=== PATIENT | female | born 1955 | race Caucasian/White ===

== ENCOUNTER → 2018-04-06 09:20 | Outpatient (CLI) | payer OTHER, MEDICAID, SELFPAY ==
[2018-04-06 09:51] LABS: Influenza A and B by PCR Rapid Negative (Negative)
== END ==
PROVIDERS: Visit Provider Physician Assistant
DX: R68.89 Other general symptoms and signs (principal); J02.9 Acute pharyngitis, unspecified
CPT/HCPCS: 87070; 87400

== ENCOUNTER 2019-12-17 12:58 | Emergency (ER) | payer OTHER, MEDICAID, SELFPAY ==
[2019-12-17 13:05] VITALS: BP 182/79; PULSE 102; RESP 20; TEMP 36.6; O2SAT 97
--- NOTE | 2019-12-17 13:11 | DI.RAD.S_ITS ---
PROCEDURE: XR CHEST 1V INDICATIONS: chest pain TECHNIQUE: One view of the chest was acquired. COMPARISON: [facility], , CHEST 2 VIEW, 04/08/2017, 12:44. FINDINGS: Surgical changes and devices: None. Lungs and pleura: Lungs are clear. No pleural effusions or pneumothorax. Mediastinum: Mediastinal contours appear normal. Heart size is normal. Bones and chest wall: No suspicious bony lesions. Overlying soft tissues appear unremarkable. IMPRESSION: No acute cardiopulmonary abnormality. Dictated by: Alfredo Vogt M.D. on 12/17/2019 at 12:56 Approved by: Alfredo Vogt M.D. on 12/17/2019 at 12:56
[2019-12-17 13:32] LABS: Add Manual Diff / Slide Review NO; Basophils Absolute Auto 100 /uL (0-100); Basophils Percent Auto 1.2 % (0-2); Eosinophils Absolute Auto 100 /uL (0-450); Eosinophils Percent Auto 0.9 % (2-4); Hematocrit 40.9 % (36-46); Hemoglobin 13.5 g/dL (12.0-16.0); Lymphocytes Absolute Auto 2000 /uL (1100-4500); Lymphocytes Percent Auto 24.8 % (25-40); Mean Corpuscular Hemoglobin 29.4 PG (26-34); Mean Corpuscular Volume 89.1 fL (80-100); Monocytes Absolute Auto 500 /uL (0-900); Monocytes Percent Auto 6.8 % (3-14); Neutrophils Absolute Auto 5200 /uL (1500-7000); Neutrophils Percent Auto 66.3 % (50-75); Platelet Count 333 X10^3/uL (150-400); Red Blood Cell Count 4.59 X10^6/uL (4.0-5.2); Red Cell Distribution Width 12.3 % (11.6-14.8); White Blood Cell Count 7.9 X10^3/uL (4.5-11.0)
[2019-12-17 13:44] LABS: Prothrombin Time 11.8 SECONDS (10.1-12.7)
[2019-12-17 13:47] LABS: PTT Partial Thromboplastin Tim 34 SECONDS (26.4-36.2)
[2019-12-17 13:48] LABS: Alanine Aminotransferase 13 IU/L (<35); Albumin 4.3 g/dL (3.5-5.0); Albumin Globulin Ratio 1.3 (1.0-2.8); Alkaline Phosphatase 115 U/L (38-126); Aspartate Aminotransferase 19 IU/L (14-36); BUN Creatinine Ratio 25.9 (6-22); Bilirubin Total 0.5 mg/dL (0.2-1.3); Blood Urea Nitrogen 15 mg/dL (7-17); Calcium 9.2 mg/dL (8.4-10.2); Carbon Dioxide 30 mmol/L (22-32); Chloride 108 mmol/L (98-107); Creatine Kinase 42 U/L (30-135); Estimated Glomerular Filt Rate > 60.0 mL/min (>60); Globulin 3.3 g/dL (1.7-4.1); Glucose 101 mg/dL (80-110); HEMOLYSIS < 15 (0-50); Lipase 107 U/L (23-300); Potassium 3.5 mmol/L (3.4-5.1); Sodium 142 mmol/L (137-145); Total Protein 7.6 g/dL (6.3-8.2)
[2019-12-17 14:00] LABS: Troponin I < 0.012 ng/mL (0.01-0.034)
[2019-12-17] MEDS: ONDANSETRON 4 MG/2 ML INJ IV (14:37)
[2019-12-17] MEDS: KETOROLAC 60 MG/2 ML VIAL 30 MG IV (14:37)
--- NOTE | 2019-12-17 14:52 | ED.HA ---
HPI - Headache <THUAN Duong - Last Filed: 12/17/19 20:04> General Chief Complaint: Headache Stated Complaint: Chipped Tooth, Headache, Throwing Up Time Seen by Provider: 12/17/19 13:51 Mode of arrival: Ambulatory History of Present Illness HPI Narrative: 64-year-old female presents emergency department for left lower tooth pain. Patient states she chipped her tooth about a week ago, however she ate a taco this morning and noticed increasing pain and swelling. Patient states this triggered headache. She has a history of headaches, she states she gets them every once in a while in usually vomits with her headaches. Patient did have a few episodes of vomiting today. Patient also notes intermittent sharp stabbing chest pain for the past week. Patient states the pain lasts a few seconds to few minutes. She states it is worse when she presses on her chest bone. She denies any alleviating symptoms. Patient denies any other symptoms such as shortness of breath, fevers, chills, dizziness, abdominal pain, or any other concerns. Related Data Previous Rx's Medication Instructions Recorded azithromycin 250 mg tablet See Rx Instructions PO .COMPLEX #6 04/06/18 tab magic mouthwash 15 ml PO QID PRN #240 ml 04/06/18 ondansetron 4 mg disintegrating 4 mg PO Q6-8H PRN #30 tab 04/06/18 tablet clindamycin HCl 450 mg PO TID 7 Days #63 cap 12/17/19 ondansetron 4 mg PO Q6H PRN #10 tab 12/17/19 Allergies Allergy/AdvReac Type Severity Reaction Status Date / Time Penicillins [PENICILLINS] Allergy Mild RASH Verified 04/06/18 08:53 Review of Systems <THUAN Duong - Last Filed: 12/17/19 20:04> Review of Systems Narrative: REVIEW OF SYSTEMS: GENERAL: Denies fever or chills. HENT: No head trauma. Reports tooth pain, complains of headache, see HPI. EYES: No loss of vision. CARDIOVASCULAR: Reports intermittent chest pain, see HPI. RESPIRATORY: No shortness of breath or cough. GASTROINTESTINAL: No nausea, vomiting, diarrhea, or constipation. GENITOURINARY: No flank pain. MUSCULOSKELETAL: No weakness, or deformities. INTEGUMENTARY: No rash, lesions, or pruritus. NEURO: No numbness, tingling, memory loss, or confusion. PSYCH: No behavior or mood changes. Patient History <THUAN Duong - Last Filed: 12/17/19 20:04> Medical History Migraine headache (Inactive) Social History Smoking Status: Never smoker Smoking Status: Never smoker Exam <THUAN Duong - Last Filed: 12/17/19 20:04> Initial Vital Signs Initial Vital Signs: Vital Signs Temperature 97.9 F 12/17/19 13:05 Pulse Rate 102 H 12/17/19 13:05 Respiratory Rate 20 12/17/19 13:05 Blood Pressure 182/79 H 12/17/19 13:05 Pulse Oximetry 97 12/17/19 13:05 PHYSICAL EXAMINATION: GENERAL: Well groomed, alert, and cooperative. Answers questions promptly and appropriately. Vital signs noted. HENT: Normocephalic, atraumatic. Ear canals patent. Oral mucosa is pink and moist. Chipped tooth noted at #17, surrounding gingivitis. EYES: PERRLA, EOMIs, conjunctiva pink, sclera white, no periorbital swelling. CHEST: Tenderness to palpation of right sternal-costal margin CARDIOVASCULAR: S1 and S2 sounds normal. Regular rate and rhythm, no murmurs, clicks, or bruits. No pedal edema. RESPIRATORY: Normal respiratory rate, trachea midline, airway patent. No stridor, nasal flaring or accessory muscle use. Lungs are clear in all soto without wheeze, rhonchi, or crackles. GASTROINTESTINAL: Bowel sounds normoactive. Abdomen is soft and non-tender. No organomegaly. MUSCULOSKELETAL: Normal gait and coordination. Equal tone and mass bilaterally. EXTREMITIES: CMS intact. Moves all extremities. SKIN: Warm, dry, soft, appropriate color for ethnicity. No lesions, rashes, or wounds. NEURO: Alert and Oriented X 3. Good coordination. No ataxia, or sensory deficits, or cognitive issues. PSYCH: Appropriate affect and mood. <Padmaja Diaz DO - Last Filed: 12/18/19 08:27> Initial Vital Signs Initial Vital Signs: Vital Signs Temperature 97.9 F 12/17/19 13:05 Pulse Rate 102 H 12/17/19 13:05 Respiratory Rate 20 12/17/19 13:05 Blood Pressure 182/79 H 12/17/19 13:05 Pulse Oximetry 97 12/17/19 13:05 Scores <Renee THUAN Gonzalez - Last Filed: 12/17/19 20:04> HEART Score Heart Score history: Slightly Suspicious Heart Score EKG: Normal Heart Score Age: 45-64 years old Heart Score risk factors: No known risk factors Heart Score troponin: < or = to normal limit Heart Score Total: 1 Course <Renee THUAN Gonzalez - Last Filed: 12/17/19 20:04> Course Course Narrative: Patient reported resolved chest pain after administration of Toradol, improved headache after administration of Toradol and Zofran. Orders Ordered: Discontinued Medications Ketorolac Tromethamine (Toradol) 30 mg IV NOW ONE Stop: 12/17/19 14:31 Last Admin: 12/17/19 14:37 Dose: 30 mg Documented by: BOBBY Ondansetron HCl (Zofran) 4 mg IV NOW ONE Stop: 12/17/19 14:31 Last Admin: 12/17/19 14:37 Dose: 4 mg Documented by: BOBBY Consultations Consultation #1: Patient staffed with Dr. Diaz discussed test, test results, and plan of care. Vital Signs Vital signs: Vital Signs - 8 hr 12/17/19 13:05 12/17/19 15:36 Temperature 97.9 F Pulse Rate 102 H 74 Respiratory Rate 20 16 Blood Pressure 182/79 H 155/72 H Pulse Oximetry 97 96 <Padmaja Diaz DO - Last Filed: 12/18/19 08:27> Orders Ordered: Discontinued Medications Ketorolac Tromethamine (Toradol) 30 mg IV NOW ONE Stop: 12/17/19 14:31 Last Admin: 12/17/19 14:37 Dose: 30 mg Documented by: BOBBY Ondansetron HCl (Zofran) 4 mg IV NOW ONE Stop: 12/17/19 14:31 Last Admin: 12/17/19 14:37 Dose: 4 mg Documented by: BOBBY Vital Signs Vital signs: Vital Signs - 8 hr 12/17/19 13:05 12/17/19 15:36 Temperature 97.9 F Pulse Rate 102 H 74 Respiratory Rate 20 16 Blood Pressure 182/79 H 155/72 H Pulse Oximetry 97 96 MDM - Headache <Renee GonzalezTHUAN - Last Filed: 12/17/19 20:04> Medical Records Attestation: I reviewed the patient's medical records. Lab Data Attestation: I reviewed the patient's lab results. Result diagrams: 12/17/19 13:22 12/17/19 13:22 Labs: Lab Results 12/17/19 12/17/19 12/17/19 Range/Units 13:22 13:22 13:22 WBC 7.9 (4.5-11.0) X10^3/uL RBC 4.59 (4.0-5.2) X10^6/uL Hgb 13.5 (12.0-16.0) g/dL Hct 40.9 (36-46) % MCV 89.1 (80-100) fL MCH 29.4 (26-34) PG MCHC 33.0 (30-36) % RDW 12.3 (11.6-14.8) % Plt Count 333 (150-400) X10^3/uL Neut % (Auto) 66.3 (50-75) % Lymph % (Auto) 24.8 L (25-40) % [place] % (Auto) 6.8 (3-14) % Eos % (Auto) 0.9 L (2-4) % Baso % (Auto) 1.2 (0-2) % Neut # (Auto) 5200 (5724-1965) /uL Lymph # (Auto) 2000 (4073-4187) /uL [place] # (Auto) 500 (0-900) /uL Eos # (Auto) 100 (0-450) /uL Baso # (Auto) 100 (0-100) /uL PT 11.8 (10.1-12.7) SECONDS INR 1.0 (0.9-1.3) APTT 34 (26.4-36.2) SECONDS Sodium 142 (137-145) mmol/L Potassium 3.5 (3.4-5.1) mmol/L Chloride 108 H (98-107) mmol/L Carbon Dioxide 30 (22-32) mmol/L BUN 15 (7-17) mg/dL Creatinine 0.58 (0.52-1.04) mg/dL Estimated GFR > 60.0 (>60) mL/min BUN/Creatinine Ratio 25.9 H (6-22) Glucose 101 (80-110) mg/dL Calcium 9.2 (8.4-10.2) mg/dL Total Bilirubin 0.5 (0.2-1.3) mg/dL AST 19 (14-36) IU/L ALT 13 (<35) IU/L Alkaline Phosphatase 115 (38-126) U/L Total Creatine Kinase 42 (30-135) U/L CK-MB (CK-2) TNP CK-MB (CK-2) Rel Index TNP Troponin I < 0.012 (0.01-0.034) ng/mL Total Protein 7.6 (6.3-8.2) g/dL Albumin 4.3 (3.5-5.0) g/dL Globulin 3.3 (1.7-4.1) g/dL Albumin/Globulin Ratio 1.3 (1.0-2.8) Lipase 107 (23-300) U/L Imaging Data Chest x-ray: Radiologist's Impression: [place] [address] XRay Report Signed Patient: Daniel Lima R#: [id number] : 7Acct:[id number] Age/Sex: 64 / FDate of Service: 12/17/19 Loc: ED Accession Number: [id number] Procedure: XR chest 1V Ordering Provider: Padmaja Diaz D.O. PROCEDURE: XR CHEST 1V INDICATIONS: chest pain TECHNIQUE: One view of the chest was acquired. COMPARISON: [facility], , CHEST 2 VIEW, 04/08/2017, 12:44. FINDINGS: Surgical changes and devices: None. Lungs and pleura: Lungs are clear. No pleural effusions or pneumothorax. Mediastinum: Mediastinal contours appear normal. Heart size is normal. Bones and chest wall: No suspicious bony lesions. Overlying soft tissues appear unremarkable. IMPRESSION: No acute cardiopulmonary abnormality. Dictated by: Alfredo Vogt M.D. on 12/17/2019 at 12:56 Approved by: Alfredo Vogt M.D. on 12/17/2019 at 12:56 ECG Data Interpretation: 1312: Sinus rhythm, rate 95, IL interval 156, QTC 69. No ST elevation or depression. T-wave inversion noted in V1 and V2, this is consistent with prior EKGs from 2018 and 2015. EKG also viewed by Dr. Diaz per protocol. MDM Narrative Medical decision making narrative: 64-year-old female presents emergency department for a chipped tooth increasing pain, a headache consistent with her past headache, and intermittent chest pain for the past week. Suspect patient most likely has a tooth abscess surrounding her crack tooth given gingivitis, patient was prescribed clindamycin given allergy to penicillins. Additionally, I suspect this to pain triggered a headache. Patient reports headaches are consistent with previous headache, she does have vomiting occasionally with headaches. Headache improved after administration of Toradol and Zofran. This pain less likely cardiac given reproducible pain and costal-sternal border, heart score of 2, EKGs consistent with previous EKGs, negative troponin, and electrolytes within normal limits. Patient was encouraged to follow up with her primary care provider especially if symptoms continue patient further testing. Return precautions given for new worsening symptoms she agrees to plan of care verbalized understanding. <Padmaja Diaz, DO - Last Filed: 12/18/19 08:27> Lab Data Labs: Lab Results 12/17/19 12/17/19 12/17/19 Range/Units 13:22 13:22 13:22 WBC 7.9 (4.5-11.0) X10^3/uL RBC 4.59 (4.0-5.2) X10^6/uL Hgb 13.5 (12.0-16.0) g/dL Hct 40.9 (36-46) % MCV 89.1 (80-100) fL MCH 29.4 (26-34) PG MCHC 33.0 (30-36) % RDW 12.3 (11.6-14.8) % Plt Count 333 (150-400) X10^3/uL Neut % (Auto) 66.3 (50-75) % Lymph % (Auto) 24.8 L (25-40) % [place] % (Auto) 6.8 (3-14) % Eos % (Auto) 0.9 L (2-4) % Baso % (Auto) 1.2 (0-2) % Neut # (Auto) 5200 (7485-2049) /uL Lymph # (Auto) 2000 (2716-8581) /uL [place] # (Auto) 500 (0-900) /uL Eos # (Auto) 100 (0-450) /uL Baso # (Auto) 100 (0-100) /uL PT 11.8 (10.1-12.7) SECONDS INR 1.0 (0.9-1.3) APTT 34 (26.4-36.2) SECONDS Sodium 142 (137-145) mmol/L Potassium 3.5 (3.4-5.1) mmol/L Chloride 108 H (98-107) mmol/L Carbon Dioxide 30 (22-32) mmol/L BUN 15 (7-17) mg/dL Creatinine 0.58 (0.52-1.04) mg/dL Estimated GFR > 60.0 (>60) mL/min BUN/Creatinine Ratio 25.9 H (6-22) Glucose 101 (80-110) mg/dL Calcium 9.2 (8.4-10.2) mg/dL Total Bilirubin 0.5 (0.2-1.3) mg/dL AST 19 (14-36) IU/L ALT 13 (<35) IU/L Alkaline Phosphatase 115 (38-126) U/L Total Creatine Kinase 42 (30-135) U/L CK-MB (CK-2) TNP CK-MB (CK-2) Rel Index TNP Troponin I < 0.012 (0.01-0.034) ng/mL Total Protein 7.6 (6.3-8.2) g/dL Albumin 4.3 (3.5-5.0) g/dL Globulin 3.3 (1.7-4.1) g/dL Albumin/Globulin Ratio 1.3 (1.0-2.8) Lipase 107 (23-300) U/L Discharge Plan Departure Patient Disposition: Home Clinical Impression: Migraine headache, Infected tooth, Acute costochondritis Discharge Date/Time: 12/17/19 15:38 Instructions: DI for Tooth Abscess, DI for Costochondritis, DI for Headache Activity Restrictions/Additional Instructions: Thank you for entrusting me with your care today. As discussed, I have given you antibiotics to help with your tooth abscess. Also given you anti nausea medication. Your prescriptions were sent to [facility]. I suggest taking ibuprofen 400-600 mg every 6 hours to help with costochondritis in tooth pain. Your laboratory work, chest x-ray, an EKG are non-remarkable. Please follow-up with your dentist as well as your primary care provider in the next 1-2 weeks for further evaluation especially if her symptoms continue. Return emergency department for any new or worsening symptoms. Prescriptions: New ondansetron 4 mg tablet,disintegrating 4 mg PO Q6H PRN (Reason: nausea and vomiting) Qty: 10 RF: 0 clindamycin HCl 150 mg capsule 450 mg PO TID 7 Days Qty: 63 RF: 0 No Action ondansetron 4 mg tablet,disintegrating 4 mg PO Q6-8H PRN (Reason: nausea and vomiting) Qty: 30 RF: 0 magic mouthwash 15 ml PO QID PRN (Reason: pain) Qty: 240 RF: 1 azithromycin 250 mg tablet See Rx Instructions PO .COMPLEX Qty: 6 RF: 0 <Padmaja Diaz DO - Last Filed: 12/18/19 08:27> [facility] ED Attending Asmitaature Attestation: I was immediately available in the department for consultation. Documentation has been reviewed. I agree with assessment and plan.
[2019-12-17 15:36] VITALS: BP 155/72; PULSE 74; RESP 16; O2SAT 96
== END 2019-12-17 15:38 | disposition home or self-care (01) ==
PROVIDERS: Emergency Medicine; Emergency Provider Nurse Practitioner
DX: G43.909 Migraine, unspecified, not intractable, without status migrainosus (principal); K04.7 Periapical abscess without sinus; M94.0 Chondrocostal junction syndrome [Tietze]; R11.10 Vomiting, unspecified; R07.9 Chest pain, unspecified
CPT/HCPCS: 36415; 71045; 80053; 82550; 83690; 84484; 85025; 85610; 85730; 93005; 96374; 96375; 99284; J1885; J2405

== ENCOUNTER 2021-01-14 12:09 | Emergency (ER) | payer OTHER, MEDICAID, SELFPAY ==
[2021-01-14] VITALS (30 sets, daily range): BP systolic 159–229; BP diastolic 73–156; PULSE 47–102; RESP 13–57; TEMP 36.6; O2SAT 95–100; BMI 25.7
--- NOTE | 2021-01-14 12:17 | DI.RAD.S_ITS ---
PROCEDURE: XR CHEST 1V INDICATIONS: Chest pain TECHNIQUE: One view of the chest was acquired. COMPARISON: Located [facility], CR, XR CHEST 1V, 12/17/2019, 13:25. FINDINGS: Surgical changes and devices: None. Lungs and pleura: Mildly coarsened interstitial markings. No consolidation, pleural effusions or pneumothorax. Mediastinum: Mediastinal contours appear normal. Heart size is normal. Bones and chest wall: No suspicious bony lesions. Overlying soft tissues appear unremarkable. IMPRESSION: No acute cardiopulmonary abnormality. Dictated by: Jose Abdalla M.D. on 01/14/2021 at 12:33 Approved by: Jose Abdalla M.D. on 01/14/2021 at 12:34
[2021-01-14 12:24] LABS: Add Manual Diff / Slide Review NO; Basophils Absolute Auto 100 /uL (0-100); Eosinophils Absolute Auto 200 /uL (0-450); Eosinophils Percent Auto 2.4 % (2-4); Hematocrit 41.8 % (36-46); Hemoglobin 14.2 g/dL (12.0-16.0); Lymphocytes Absolute Auto 2900 /uL (1100-4500); Lymphocytes Percent Auto 30.5 % (25-40); Mean Corpuscular Hemoglobin 30.1 PG (26-34); Mean Corpuscular Volume 88.4 fL (80-100); Monocytes Absolute Auto 600 /uL (0-900); Monocytes Percent Auto 6.3 % (3-14); Neutrophils Absolute Auto 5800 /uL (1500-7000); Neutrophils Percent Auto 59.8 % (50-75); Platelet Count 372 X10^3/uL (150-400); Red Blood Cell Count 4.73 X10^6/uL (4.0-5.2); Red Cell Distribution Width 12.4 % (11.6-14.8); White Blood Cell Count 9.7 X10^3/uL (4.5-11.0)
[2021-01-14 12:28] LABS: Prothrombin Time 11.5 SECONDS (10.1-12.7)
[2021-01-14 12:33] LABS: Alanine Aminotransferase 16 IU/L (<35); Albumin 4.7 g/dL (3.5-5.0); Albumin Globulin Ratio 1.5 (1.0-2.8); Alkaline Phosphatase 109 U/L (38-126); Aspartate Aminotransferase 23 IU/L (14-36); BUN Creatinine Ratio 25.4 (6-22); Bilirubin Total 0.6 mg/dL (0.2-1.3); Blood Urea Nitrogen 16 mg/dL (7-17); Carbon Dioxide 29 mmol/L (22-32); Chloride 104 mmol/L (98-107); Creatine Kinase 38 U/L (30-135); Estimated Glomerular Filt Rate > 60.0 mL/min (>60); Globulin 3.1 g/dL (1.7-4.1); Glucose 106 mg/dL (80-110); HEMOLYSIS < 15 (0-50); Lipase 126 U/L (23-300); Magnesium 2.2 mg/dL (1.6-2.3); Potassium 3.8 mmol/L (3.4-5.1); Sodium 141 mmol/L (137-145); Total Protein 7.8 g/dL (6.3-8.2)
[2021-01-14] MEDS: SODIUM CHLORIDE 0.9% 1,000 ML 125 ML IV (12:33)
[2021-01-14] MEDS: LABETALOL 20 MG/4 ML SYRINGE IV (12:35)
[2021-01-14 12:45] LABS: NT-proBNP (BNP-Adult 18+) 148 pg/mL (<125); Troponin I 0.024 ng/mL (0.01-0.034)
[2021-01-14] MEDS: ONDANSETRON 4 MG/2 ML INJ IV (12:46)
--- NOTE | 2021-01-14 13:01 | ED.CHESTPAIN ---
HPI - Chest Pain General Chief Complaint: Chest Pain Stated Complaint: nausea,vomiting,chest pain,dizzy Time Seen by Provider: 01/14/21 12:16 Source: patient Mode of arrival: Wheelchair Limitations: no limitations History of Present Illness HPI narrative: 65-year-old female nonsmoker with history of vertigo, gastritis presents with the chief complaint of episodic chest pain for the past few days. She states the pain seems to come and go with a mind of its own. She denies any radiation of pain. She is not SOB. She denies recent travel. She has been under significant amount of stress lately and though she admits to taking her medications as prescribed she has not been eating or drinking like normal and has been at the bedside with her mother whom is admitted upstairs. She has had episodes of nausea and vomiting. She was complaining of not feeling well and nursing staff upstairs began questioning her at which point she decided to come in . Related Data Previous Rx's Medication Instructions Recorded azithromycin 250 mg tablet See Rx Instructions PO .COMPLEX #6 04/06/18 tab magic mouthwash 15 ml PO QID PRN #240 ml 04/06/18 ondansetron 4 mg disintegrating 4 mg PO Q6-8H PRN #30 tab 04/06/18 tablet ondansetron 4 mg disintegrating 4 mg PO Q6H PRN #10 tab 12/17/19 tablet amlodipine 10 mg tablet 10 mg PO DAILY #30 tab 01/14/21 hydrocodone 5 mg-acetaminophen 325 1 tab PO Q4-6H PRN #10 tab 01/14/21 mg tablet ondansetron 4 mg disintegrating 4 mg PO TID-QID PRN #10 tab 01/14/21 tablet Allergies Allergy/AdvReac Type Severity Reaction Status Date / Time Penicillins [PENICILLINS] Allergy Mild RASH Verified 01/14/21 12:18 Review of Systems Review of Systems Narrative: GENERAL see HPI HEENT: Denies sinus pain, ear pain, sore throat, difficulty swallowing, dizziness. RESPIRATORY: Denies dyspnea, cough, wheezing, hemoptysis, sputum. CARDIOVASCULAR: See HPI GASTROINTESTINAL: See HP : Denies dysuria, frequency, incontinence, hematuria, urinary retention. MUSCULOSKELETAL: denies weakness, joint pain, or bony pain SKIN: Denies rash, skin lesions, or other NEUROLOGIC: Denies weakness, headache, numbness, change in speech, confusion, seizures, incoordination. PSYCHIATRIC: No concerning psychosocial issues. 12 point review of systems is negative except for those stated above Patient History Medical History (Updated 01/14/21 @ 15:03 by Randy Hernández DO) Migraine headache Social History Smoking Status: Never smoker Smoking Status: Never smoker alcohol intake frequency: holidays/special occasions only Substance Use Type: does not use Exam Narrative Exam Narrative: GENERAL: [65 year old patient appears stated age. Well-developed patient, in mild distress. HEAD: Atraumatic. Normocephalic. EYES: Pupils equal round and reactive. Extraocular motions intact. No scleral icterus. No injection or drainage. ENT: Nose without bleeding, purulent drainage. Throat without erythema, tonsillar hypertrophy or exudate. Airway patent. NECK: Trachea midline. Non tender CARDIOVASCULAR: Regular rate and rhythm without murmurs, gallops, or rubs. RESPIRATORY: Clear to auscultation. Breath sounds equal bilaterally. No wheezes, rales, or rhonchi. GASTROINTESTINAL: Abdomen soft, non-tender, nondistended. EXTREMITIES: No edema or joint tenderness. BACK: Nontender without deformity or crepitance. No flank tenderness. NEURO: AOx3. SKIN: No rash or erythema of visible areas Initial Vital Signs Initial Vital Signs: Vital Signs Temperature 97.8 F 01/14/21 12:12 Pulse Rate 92 H 01/14/21 12:12 Respiratory Rate 14 01/14/21 12:12 Blood Pressure 229/114 H 01/14/21 12:12 Pulse Oximetry 95 01/14/21 12:12 Course Orders Ordered: Discontinued Medications Al Hydrox/Mg Hydrox/Simethicone 20 ml/ Lidocaine HCl 15 ml 0 ml PO NOW ONE Stop: 01/14/21 12:57 Last Admin: 01/14/21 13:03 Dose: 35 ml Documented by: JAILYN Sodium Chloride (Normal Saline 0.9%) 1,000 mls @ 125 mls/hr IV CONT SOL Last Infusion: 01/14/21 15:24 Dose: 0 mls/hr Documented by: Admin: 01/14/21 12:33 Dose: 125 mls/hr Documented by: JAILYN Ketorolac Tromethamine (Ketorolac 30 Mg/Ml Vial) 15 mg IV NOW ONE Stop: 01/14/21 14:42 Last Admin: 01/14/21 14:54 Dose: 15 mg Documented by: JERMAINE Labetalol HCl (Labetalol 20 Mg/4 Ml Syringe) 20 mg IV NOW ONE Stop: 01/14/21 12:17 Last Admin: 01/14/21 12:35 Dose: 10 mg Documented by: JAILYN Metoclopramide HCl (Metoclopramide 10 Mg/2 Ml Inj) 10 mg IV NOW ONE Stop: 01/14/21 14:42 Last Admin: 01/14/21 14:54 Dose: 10 mg Documented by: JERMAINE Ondansetron HCl (Ondansetron 4 Mg/2 Ml Inj) 4 mg IV NOW ONE Stop: 01/14/21 12:42 Last Admin: 01/14/21 12:46 Dose: 4 mg Documented by: JAILYN Pantoprazole Sodium (Pantoprazole 40 Mg Vial) 40 mg IV NOW ONE Stop: 01/14/21 12:57 Last Admin: 01/14/21 13:02 Dose: 40 mg Documented by: JAILYN Vital Signs Vital signs: Vital Signs - 8 hr 01/14/21 12:12 01/14/21 12:15 01/14/21 12:28 Temperature 97.8 F Pulse Rate 92 H 96 H 102 H Respiratory Rate 14 57 H Blood Pressure 229/114 H 229/111 H 196/156 H Pulse Oximetry 95 97 99 01/14/21 12:30 01/14/21 12:35 01/14/21 12:40 Temperature Pulse Rate 95 H 72 91 H Respiratory Rate 53 H Blood Pressure 201/90 H 198/95 H 198/95 H Pulse Oximetry 98 99 97 01/14/21 12:42 01/14/21 12:45 01/14/21 12:48 Temperature Pulse Rate 82 78 71 Respiratory Rate Blood Pressure 181/83 H 177/86 H 167/75 H Pulse Oximetry 97 97 98 01/14/21 12:50 01/14/21 12:51 01/14/21 12:55 Temperature Pulse Rate 81 77 70 Respiratory Rate 23 26 H Blood Pressure 160/73 H 159/74 H Pulse Oximetry 98 99 99 01/14/21 13:00 01/14/21 13:05 01/14/21 13:10 Temperature Pulse Rate 68 68 73 Respiratory Rate 15 21 13 Blood Pressure 199/82 H 188/83 H 172/75 H Pulse Oximetry 96 98 97 01/14/21 13:15 01/14/21 13:20 01/14/21 13:21 Temperature Pulse Rate 60 66 69 Respiratory Rate 23 Blood Pressure 159/73 H 180/84 H Pulse Oximetry 97 99 98 01/14/21 13:25 01/14/21 13:30 01/14/21 13:35 Temperature Pulse Rate 51 L 52 L 47 L Respiratory Rate 23 17 15 Blood Pressure 178/82 H Pulse Oximetry 97 97 98 01/14/21 13:40 01/14/21 13:45 01/14/21 13:50 Temperature Pulse Rate 80 67 62 Respiratory Rate Blood Pressure Pulse Oximetry 99 99 96 01/14/21 13:55 01/14/21 14:00 01/14/21 14:01 Temperature Pulse Rate 73 60 61 Respiratory Rate Blood Pressure 219/99 H Pulse Oximetry 97 99 99 01/14/21 14:30 Temperature Pulse Rate 78 Respiratory Rate 20 Blood Pressure 186/81 H Pulse Oximetry 97 MDM - Chest Pain Lab Data Result diagrams: 01/14/21 12:16 01/14/21 12:16 Labs: Lab Results 01/14/21 01/14/21 01/14/21 Range/Units 12:16 12:16 12:16 WBC 9.7 (4.5-11.0) X10^3/uL RBC 4.73 (4.0-5.2) X10^6/uL Hgb 14.2 (12.0-16.0) g/dL Hct 41.8 (36-46) % MCV 88.4 (80-100) fL MCH 30.1 (26-34) PG MCHC 34.0 (30-36) % RDW 12.4 (11.6-14.8) % Plt Count 372 (150-400) X10^3/uL Neut % (Auto) 59.8 (50-75) % Lymph % (Auto) 30.5 (25-40) % [place] % (Auto) 6.3 (3-14) % Eos % (Auto) 2.4 (2-4) % Baso % (Auto) 1.0 (0-2) % Neut # (Auto) 5800 (1150-4207) /uL Lymph # (Auto) 2900 (4664-8514) /uL [place] # (Auto) 600 (0-900) /uL Eos # (Auto) 200 (0-450) /uL Baso # (Auto) 100 (0-100) /uL PT 11.5 (10.1-12.7) SECONDS INR 1.0 (0.9-1.3) Sodium 141 (137-145) mmol/L Potassium 3.8 (3.4-5.1) mmol/L Chloride 104 (98-107) mmol/L Carbon Dioxide 29 (22-32) mmol/L BUN 16 (7-17) mg/dL Creatinine 0.63 (0.52-1.04) mg/dL Estimated GFR > 60.0 (>60) mL/min BUN/Creatinine Ratio 25.4 H (6-22) Glucose 106 (80-110) mg/dL Calcium 10.0 (8.4-10.2) mg/dL Magnesium 2.2 (1.6-2.3) mg/dL Total Bilirubin 0.6 (0.2-1.3) mg/dL AST 23 (14-36) IU/L ALT 16 (<35) IU/L Alkaline Phosphatase 109 (38-126) U/L Total Creatine Kinase 38 (30-135) U/L CK-MB (CK-2) TNP CK-MB (CK-2) Rel Index TNP Troponin I 0.024 (0.01-0.034) ng/mL NT-Pro-B Natriuret Pep 148 H (<125) pg/mL Total Protein 7.8 (6.3-8.2) g/dL Albumin 4.7 (3.5-5.0) g/dL Globulin 3.1 (1.7-4.1) g/dL Albumin/Globulin Ratio 1.5 (1.0-2.8) Lipase 126 (23-300) U/L SARS-CoV-2 (PCR) (Negative) 01/14/21 Range/Units 12:26 WBC (4.5-11.0) X10^3/uL RBC (4.0-5.2) X10^6/uL Hgb (12.0-16.0) g/dL Hct (36-46) % MCV (80-100) fL MCH (26-34) PG MCHC (30-36) % RDW (11.6-14.8) % Plt Count (150-400) X10^3/uL Neut % (Auto) (50-75) % Lymph % (Auto) (25-40) % [place] % (Auto) (3-14) % Eos % (Auto) (2-4) % Baso % (Auto) (0-2) % Neut # (Auto) (7286-1092) /uL Lymph # (Auto) (6966-9031) /uL [place] # (Auto) (0-900) /uL Eos # (Auto) (0-450) /uL Baso # (Auto) (0-100) /uL PT (10.1-12.7) SECONDS INR (0.9-1.3) Sodium (137-145) mmol/L Potassium (3.4-5.1) mmol/L Chloride (98-107) mmol/L Carbon Dioxide (22-32) mmol/L BUN (7-17) mg/dL Creatinine (0.52-1.04) mg/dL Estimated GFR (>60) mL/min BUN/Creatinine Ratio (6-22) Glucose (80-110) mg/dL Calcium (8.4-10.2) mg/dL Magnesium (1.6-2.3) mg/dL Total Bilirubin (0.2-1.3) mg/dL AST (14-36) IU/L ALT (<35) IU/L Alkaline Phosphatase (38-126) U/L Total Creatine Kinase (30-135) U/L CK-MB (CK-2) CK-MB (CK-2) Rel Index Troponin I (0.01-0.034) ng/mL NT-Pro-B Natriuret Pep (<125) pg/mL Total Protein (6.3-8.2) g/dL Albumin (3.5-5.0) g/dL Globulin (1.7-4.1) g/dL Albumin/Globulin Ratio (1.0-2.8) Lipase (23-300) U/L SARS-CoV-2 (PCR) Negative (Negative) Imaging Data US - abdomen: Radiologist's Impression: [address] [address] Ultrasound Report Signed Patient: Daniel Lima MR#: [id number] : 1955 Acct:[id number] Age/Sex: 65 / F Date of Service: 01/14/21 Loc: ED Accession Number: [id number] ?? Procedure: US abdomen limited Ordering Provider: Randy Hernández D.O. PROCEDURE:? US ABDOMEN LIMITED ? INDICATIONS:? NAUSEA AND VOMITING. EPIGASTRIC PAIN RADIATING TO BACK. ? TECHNIQUE:? Real-time scanning was performed of the abdominal and retroperitoneal organs, with image documentation.? COMPARISON:? None. ? FINDINGS:? Liver:? Liver is normal in size and homogeneous in echotexture.? ? Gallbladder:? Gallbladder contains multiple mobile gallstones with the largest measuring 1.2 cm in size.? Gallbladder wall measures at the borderline limits of normal at 3 mm.? No pericholecystic fluid.? No abnormal sonographic Zepeda's reported.? ? Biliary ducts:? Intrahepatic bile ducts are non-dilated.? Extrahepatic bile duct caliber measures 3 mm.? Normal is 6-7 mm or less in diameter, or 10 mm or less post-cholecystectomy.? ? Pancreas:? Visualized portions of the pancreas are sonographically normal.? ? Miscellaneous:? No free abdominal fluid.? ? IMPRESSION:? ? 1. Cholelithiasis with nonspecific borderline thickening of the gallbladder wall.? Otherwise, no sonographic evidence for acute cholecystitis. ? 2. No acute sonographic abnormalities identified in the right upper abdomen. ? Dictated by: Kaiser Walls M.D. on 01/14/2021 at 14:18 ? ? Approved by: Kaiser Walls M.D. on 01/14/2021 at 14:25 ? MDM Narrative Medical decision making narrative: Patient's pain is well controlled, she is tolerating orals without difficulty. I discussed the case with General surgery and there is no obvious sign of acute cholecystitis. Encouraged patient to avoid fatty foods, consider clear liquid diet, pain control, antiemetics and follow-up with her office as well as return precautions. This questions have been answered to her apparent satisfaction Discharge Plan Departure Patient Disposition: Home Clinical Impression: Biliary colic, Hypertension Instructions: Essential Hypertension, DI for Gallstones Activity Restrictions/Additional Instructions: *You have been diagnosed with [elevated blood pressure and gallbladder disease. Otherwise your labs and physical exam are reassuring. *What to do: *Please continue to take your regular medications as directed. [ x] New medication prescriptions sent to your pharmacy: [[facility] ] [ ] New medication written as a paper prescription [ ] No new medications given *Please follow up with your primary care provider in 2-3 days, call for an appointment. Let them know you were seen in the Emergency Department and that we ask that you be seen in follow up. We will electronically transmit a record of today's note if your PCP is in our system *If you do not have a primary care provider please contact the [facility] Resource line at [phone]. They will ask some questions about your medical history and help get you set up with a doctor in the community. *Return to Emergency Department if you should have any new, worsening or concerning symptoms, such as [fever greater than 101 F, shaking chills, worsening pain, persistent vomiting or other bothersome symptoms] Prescriptions: New amlodipine 10 mg tablet 10 mg PO DAILY Qty: 30 RF: 0 hydrocodone-acetaminophen 5-325 mg tablet 1 tab PO Q4-6H PRN (Reason: pain) Qty: 10 RF: 0 ondansetron 4 mg tablet,disintegrating 4 mg PO TID-QID PRN (Reason: nausea and vomiting) Qty: 10 RF: 0 No Action ondansetron 4 mg tablet,disintegrating 4 mg PO Q6-8H PRN (Reason: nausea and vomiting) Qty: 30 RF: 0 magic mouthwash 15 ml PO QID PRN (Reason: pain) Qty: 240 RF: 1 azithromycin 250 mg tablet See Rx Instructions PO .COMPLEX Qty: 6 RF: 0 ondansetron 4 mg tablet,disintegrating 4 mg PO Q6H PRN (Reason: nausea and vomiting) Qty: 10 RF: 0
[2021-01-14] MEDS: PANTOPRAZOLE 40 MG VIAL IV (13:02)
[2021-01-14] MEDS: MAG HYDROX/ALUMINUM/SIMETH SUS 20 ML, LIDOCAINE VISCOUS 2% 15 ML PO (13:03)
[2021-01-14 13:24] LABS: COVID19 - ADMIT (NP swab/PCR) Negative (Negative)
--- NOTE | 2021-01-14 13:41 | DI.US.S_ITS ---
PROCEDURE: US ABDOMEN LIMITED INDICATIONS: NAUSEA AND VOMITING. EPIGASTRIC PAIN RADIATING TO BACK. TECHNIQUE: Real-time scanning was performed of the abdominal and retroperitoneal organs, with image documentation. COMPARISON: None. FINDINGS: Liver: Liver is normal in size and homogeneous in echotexture. Gallbladder: Gallbladder contains multiple mobile gallstones with the largest measuring 1.2 cm in size. Gallbladder wall measures at the borderline limits of normal at 3 mm. No pericholecystic fluid. No abnormal sonographic Zepeda's reported. Biliary ducts: Intrahepatic bile ducts are non-dilated. Extrahepatic bile duct caliber measures 3 mm. Normal is 6-7 mm or less in diameter, or 10 mm or less post-cholecystectomy. Pancreas: Visualized portions of the pancreas are sonographically normal. Miscellaneous: No free abdominal fluid. IMPRESSION: 1. Cholelithiasis with nonspecific borderline thickening of the gallbladder wall. Otherwise, no sonographic evidence for acute cholecystitis. 2. No acute sonographic abnormalities identified in the right upper abdomen. Dictated by: Kaiser Walls M.D. on 01/14/2021 at 14:18 Approved by: Kaiser Walls M.D. on 01/14/2021 at 14:25
[2021-01-14] MEDS: METOCLOPRAMIDE 10 MG/2 ML INJ IV (14:54)
[2021-01-14] MEDS: KETOROLAC 30 MG/ML VIAL 15 MG IV (14:54)
== END 2021-01-14 15:57 | disposition home or self-care (01) ==
PROVIDERS: Emergency Provider Emergency Medicine
DX: K80.50 Calculus of bile duct without cholangitis or cholecystitis without obstruction (principal); I10 Essential (primary) hypertension; R11.2 Nausea with vomiting, unspecified; Z20.822 Contact with and (suspected) exposure to COVID-19
CPT/HCPCS: 36415; 71045; 76705; 80053; 82550; 83690; 83735; 83880; 84484; 85025; 85610; 87635; 93005; 96361; 96374; 96375; 99284; C9803; C9113; J1885; J2405; J2765